=== PATIENT | male | born 1980 | race Caucasian/White ===

== ENCOUNTER → 2018-05-18 | Outpatient (CLI) | payer BC ==
[~2018-05-18] MED LIST: HYDR-5688 PO; ONDA4TAB46 PO; TAMS0.4C38 PO; [UNRECOGNIZED DRUG - CODE] PO
--- NOTE | 2018-05-18 11:13 | DIAGNOSTIC IMAGING REPORT ---
TWO VIEW CHEST CLINICAL HISTORY: Nephrolithiasis. Recent lithotripsy. FINDINGS: PA and lateral chest radiographs are compared to study dated 04/22/2018. The PA view is degraded by apical lordotic positioning. The cardiomediastinal silhouette is unremarkable. The lungs and pleural spaces are clear. There is no pneumothorax. The bony thorax appears intact. IMPRESSION: No active disease in the chest. Electronically signed by: Aiden Cabrera M.D. 05/18/2018 11:12 AM Dictated Date/Time: 05/18/2018 11:11 AM
--- NOTE | 2018-05-18 12:00 | DIAGNOSTIC IMAGING REPORT ---
KUB HISTORY: NEPHROLITHIASIS COMPARISON: KUB 04/22/2018. FINDINGS: The bowel gas pattern is unremarkable. There are no dilated loops of small bowel to suggest an obstruction. There are 2 stones seen within the lower pole of the right kidney. These are new from the prior study and likely represent retrograde passage of the previous identified right ureteral stones. No ureteral calculi identified. No left renal calculi. No pneumoperitoneum or pneumatosis. IMPRESSION: There are 2 stones seen within the lower pole of the right kidney. These are new from the prior study and likely represent retrograde passage of the previous identified right ureteral stones. No ureteral calculi identified. Electronically signed by: Nav Dominguez M.D. 05/18/2018 11:59 AM Dictated Date/Time: 05/18/2018 11:57 AM
== END | disposition home or self-care (01) ==
LOC: C.RAD 10:46
PROVIDERS: ATTEND Urology
DX: N20.0 Calculus of kidney (principal)